=== PATIENT | female | born 1950 ===

== ENCOUNTER 2017-09-20 10:57 | Outpatient (CLI) | payer MEDICARE | END 2017-09-20 10:58 | disposition home or self-care (01) | LOC: BICMAMMO 10:57 | PROVIDERS: ATTEND Obstetrics & Gynecology | DX: Z12.31 Encounter for screening mammogram for malignant neoplasm of breast (principal); Z13.820 Encounter for screening for osteoporosis; M85.88 Other specified disorders of bone density and structure, other site; M85.859 Other specified disorders of bone density and structure, unspecified thigh; Z78.0 Asymptomatic menopausal state | CPT/HCPCS: 77063; 77067; 77080 ==

== ENCOUNTER 2018-09-21 09:52 | Outpatient (CLI) | payer MEDICARE ==
--- NOTE | 2018-09-21 15:34 | MMO ---
Bilateral MAMMO Bilat Screen [facility]. CLINICAL HISTORY: Patient is 67 years old and is seen for screening. The patient has no family history of breast cancer. The patient has no personal history of cancer. VIEWS: The views performed were: bilateral craniocaudal with tomosynthesis and bilateral mediolateral oblique with tomosynthesis. FILMS COMPARED: The present examination has been compared to prior imaging studies performed at [facility] on 08/23/2007, 08/24/2008, 08/26/2009, 09/03/2010, 09/04/2011, 09/07/2012, 09/08/2013, 09/10/2014, 09/13/2015, 09/18/2016 and 09/20/2017, and at [facility] on 08/18/2005 and 08/23/2006. MAMMOGRAM FINDINGS: There are scattered fibroglandular densities. There are no suspicious masses, calcifications or areas of architectural distortion. IMPRESSION: THERE IS NO MAMMOGRAPHIC EVIDENCE OF MALIGNANCY. A ROUTINE FOLLOW-UP MAMMOGRAM IN 1 YEAR IS RECOMMENDED. THE RESULTS OF THIS EXAM WERE SENT TO THE PATIENT. ACR BI-RADS Category 1 - Negative MAMMOGRAPHY NOTE: 1. A negative mammogram report should not delay a biopsy if a dominant of clinically suspicious mass is present. 2. Approximately 10% to 15% of breast cancers are not detected by mammography. 3. Adenosis and dense breasts may obscure an underlying neoplasm.
== END 2018-09-21 09:53 | disposition home or self-care (01) ==
LOC: BICMAMMO 09:52
PROVIDERS: ATTEND Obstetrics & Gynecology
DX: Z12.31 Encounter for screening mammogram for malignant neoplasm of breast (principal)
CPT/HCPCS: 77063; 77067

== ENCOUNTER 2019-09-25 09:54 | Outpatient (CLI) | payer MEDICARE, OTHER ==
--- NOTE | 2019-09-25 10:36 | BD ---
EXAM: Bone densitometry using DEXA HISTORY: 68 yo female. Screening for postmenopausal osteoporosis FINDINGS: L1--bone mineral density 0.790 g/sq cm; T score -1.8 ; Z score -0.1 L2--bone mineral density 0.739 g/sq cm; T score -2.6 ; Z score -0.7 L3--bone mineral density 0.835 g/sq cm; T score -2.3 ; Z score -0.2 L4--bone mineral density 0.772 g/sq cm; T score -2.6 ; Z score -0.5 Total L1-L4--bone mineral density 0.781 g/sq cm; T score -2.4 ; Z score -0.5 Left femoral neck--bone mineral density0.730; T score -1.1 ; Z score 0.6 Total proximal left femur--bone mineral density 0.935; T score -0.1 ; Z score 1.3 The 10 year fracture risk for a major osteoporotic fracture is 8.8% and for a hip fracture is 0.8%. IMPRESSION: Osteopenia
--- NOTE | 2019-09-25 10:55 | MMO ---
Bilateral MAMMO Bilat Screen [facility]. CLINICAL HISTORY: Patient is 68 years old and is seen for screening. The patient has no family history of breast cancer. The patient has no personal history of cancer. VIEWS: The views performed were: bilateral craniocaudal with tomosynthesis and bilateral mediolateral oblique with tomosynthesis. FILMS COMPARED: The present examination has been compared to prior imaging studies performed at [facility] on 09/13/2015, 09/18/2016, 09/20/2017 and 09/21/2018. This study has been interpreted with the assistance of computer-aided detection. MAMMOGRAM FINDINGS: There are scattered fibroglandular densities. There are no suspicious masses, suspicious calcifications, or new areas of architectural distortion. IMPRESSION: THERE IS NO MAMMOGRAPHIC EVIDENCE OF MALIGNANCY. A ROUTINE FOLLOW-UP MAMMOGRAM IN 1 YEAR IS RECOMMENDED. THE RESULTS OF THIS EXAM WERE SENT TO THE PATIENT. ACR BI-RADS Category 1 - Negative MAMMOGRAPHY NOTE: 1. A negative mammogram report should not delay a biopsy if a dominant of clinically suspicious mass is present. 2. Approximately 10% to 15% of breast cancers are not detected by mammography. 3. Adenosis and dense breasts may obscure an underlying neoplasm. Reported by: BARNEY ROGERS MD Electonically Signed: [id number]
== END 2019-09-25 09:55 | disposition home or self-care (01) ==
LOC: BICMAMMO 09:54
PROVIDERS: ATTEND Obstetrics & Gynecology
DX: Z12.31 Encounter for screening mammogram for malignant neoplasm of breast (principal); M81.0 Age-related osteoporosis without current pathological fracture; M85.89 Other specified disorders of bone density and structure, multiple sites
CPT/HCPCS: 77063; 77067; 77080

== ENCOUNTER 2020-09-27 10:09 | Outpatient (CLI) | payer MEDICARE, OTHER | END 2020-09-27 10:10 | disposition home or self-care (01) | LOC: BICMAMMO 10:09 | PROVIDERS: ATTEND Obstetrics & Gynecology | DX: Z12.31 Encounter for screening mammogram for malignant neoplasm of breast (principal) | CPT/HCPCS: 77063; 77067 ==